=== PATIENT | male | born 1950 | race Caucasian/White ===

== ENCOUNTER → 2017-10-22 | Outpatient (CLI) | payer MEDICARE, OTHER ==
[~2017-10-22] MED LIST: ANAS1TAB3 PO; ASPI-621 PO; DABI150C PO; DILT120C9 PO; HYDR20TA22 PO; LEVO750T26 PO; METO25TA35 PO; POTA20TA91 PO; PRAS1TAB2 PO; ROSU5TAB PO
== END | disposition home or self-care (01) ==
LOC: WOUND 08:00
PROVIDERS: ATTEND Internal Medicine
DX: T81.31XD Disruption of external operation (surgical) wound, not elsewhere classified, subsequent encounter (principal); I25.10 Atherosclerotic heart disease of native coronary artery without angina pectoris; I10 Essential (primary) hypertension; I25.2 Old myocardial infarction; G47.33 Obstructive sleep apnea (adult) (pediatric); I48.2 Chronic atrial fibrillation; Y83.8 Other surgical procedures as the cause of abnormal reaction of the patient, or of later complication, without mention of misadventure at the time of the procedure
CPT/HCPCS: 11042; G0463; WOU0463

== ENCOUNTER → 2017-10-29 | Outpatient (CLI) | payer MEDICARE, OTHER | END | disposition home or self-care (01) | LOC: WOUND 08:00 | PROVIDERS: ATTEND Internal Medicine | DX: T81.31XD Disruption of external operation (surgical) wound, not elsewhere classified, subsequent encounter (principal); I25.10 Atherosclerotic heart disease of native coronary artery without angina pectoris; I10 Essential (primary) hypertension; G47.33 Obstructive sleep apnea (adult) (pediatric); I48.2 Chronic atrial fibrillation; I25.2 Old myocardial infarction; Y83.8 Other surgical procedures as the cause of abnormal reaction of the patient, or of later complication, without mention of misadventure at the time of the procedure | CPT/HCPCS: 97597 ==

== ENCOUNTER → 2017-11-05 | Outpatient (CLI) | payer MEDICARE, OTHER ==
[~2017-11-05] MED LIST changes: +DILT180C9 PO; +FEXO1TAB25 PO; +MULT-658 PO; +RIVA20TA PO; +SILO8CAP PO; +THYROID PO; +TIZA4TAB PO; +[UNRECOGNIZED DRUG - OTHER] IM
== END | disposition home or self-care (01) ==
LOC: WOUND 07:47
PROVIDERS: ATTEND Internal Medicine
DX: S81.801D Unspecified open wound, right lower leg, subsequent encounter (principal); E23.7 Disorder of pituitary gland, unspecified; G47.33 Obstructive sleep apnea (adult) (pediatric); I25.2 Old myocardial infarction; I48.91 Unspecified atrial fibrillation; I25.10 Atherosclerotic heart disease of native coronary artery without angina pectoris; I10 Essential (primary) hypertension; Z98.49 Cataract extraction status, unspecified eye; Z90.49 Acquired absence of other specified parts of digestive tract; X58.XXXD Exposure to other specified factors, subsequent encounter
CPT/HCPCS: 97597

== ENCOUNTER → 2017-11-12 | Outpatient (CLI) | payer MEDICARE, OTHER | END | disposition home or self-care (01) | LOC: WOUND 08:30 | PROVIDERS: ATTEND Internal Medicine | DX: T81.30XD Disruption of wound, unspecified, subsequent encounter (principal); S81.801D Unspecified open wound, right lower leg, subsequent encounter; X58.XXXD Exposure to other specified factors, subsequent encounter; I25.10 Atherosclerotic heart disease of native coronary artery without angina pectoris; I10 Essential (primary) hypertension; I48.91 Unspecified atrial fibrillation; G47.33 Obstructive sleep apnea (adult) (pediatric); E03.9 Hypothyroidism, unspecified; I25.2 Old myocardial infarction; I48.2 Chronic atrial fibrillation; Z90.49 Acquired absence of other specified parts of digestive tract | CPT/HCPCS: 97597 ==

== ENCOUNTER → 2017-11-26 | Outpatient (CLI) | payer MEDICARE, OTHER | END | disposition home or self-care (01) | LOC: WOUND 08:19 | PROVIDERS: ATTEND Internal Medicine | DX: T81.30XD Disruption of wound, unspecified, subsequent encounter (principal); I25.10 Atherosclerotic heart disease of native coronary artery without angina pectoris; I10 Essential (primary) hypertension; G47.33 Obstructive sleep apnea (adult) (pediatric); E78.5 Hyperlipidemia, unspecified; I11.9 Hypertensive heart disease without heart failure; E03.9 Hypothyroidism, unspecified; I25.2 Old myocardial infarction; E11.9 Type 2 diabetes mellitus without complications; I48.2 Chronic atrial fibrillation; Z90.49 Acquired absence of other specified parts of digestive tract; Z87.891 Personal history of nicotine dependence; Z79.01 Long term (current) use of anticoagulants; Y83.8 Other surgical procedures as the cause of abnormal reaction of the patient, or of later complication, without mention of misadventure at the time of the procedure | CPT/HCPCS: 97597 ==

== ENCOUNTER → 2017-12-03 | Outpatient (CLI) | payer MEDICARE, OTHER | END | disposition home or self-care (01) | LOC: WOUND 08:00 | PROVIDERS: ATTEND Family Medicine | DX: T81.31XD Disruption of external operation (surgical) wound, not elsewhere classified, subsequent encounter (principal); I25.10 Atherosclerotic heart disease of native coronary artery without angina pectoris; I48.91 Unspecified atrial fibrillation; G47.33 Obstructive sleep apnea (adult) (pediatric); I48.2 Chronic atrial fibrillation; E78.5 Hyperlipidemia, unspecified; I11.9 Hypertensive heart disease without heart failure; E03.9 Hypothyroidism, unspecified; E11.9 Type 2 diabetes mellitus without complications; I25.2 Old myocardial infarction; Z87.891 Personal history of nicotine dependence; Z90.49 Acquired absence of other specified parts of digestive tract; Z79.01 Long term (current) use of anticoagulants; Y83.8 Other surgical procedures as the cause of abnormal reaction of the patient, or of later complication, without mention of misadventure at the time of the procedure | CPT/HCPCS: 97597 ==

== ENCOUNTER → 2017-12-10 | Outpatient (CLI) | payer MEDICARE, OTHER ==
[~2017-12-10] MED LIST changes: +METO-99 PO; +METO50TA82 PO; +THYR32.54 PO; +THYR65TA2 PO
== END | disposition home or self-care (01) ==
LOC: WOUND 08:02
PROVIDERS: ATTEND Internal Medicine
DX: T81.31XD Disruption of external operation (surgical) wound, not elsewhere classified, subsequent encounter (principal); I25.10 Atherosclerotic heart disease of native coronary artery without angina pectoris; I10 Essential (primary) hypertension; G47.33 Obstructive sleep apnea (adult) (pediatric); E78.5 Hyperlipidemia, unspecified; E03.9 Hypothyroidism, unspecified; I25.2 Old myocardial infarction; G47.30 Sleep apnea, unspecified; I48.2 Chronic atrial fibrillation; I11.9 Hypertensive heart disease without heart failure; E11.9 Type 2 diabetes mellitus without complications; Z90.49 Acquired absence of other specified parts of digestive tract; Z87.891 Personal history of nicotine dependence; Z79.01 Long term (current) use of anticoagulants; Y83.8 Other surgical procedures as the cause of abnormal reaction of the patient, or of later complication, without mention of misadventure at the time of the procedure
CPT/HCPCS: 97597

== ENCOUNTER → 2017-12-17 | Outpatient (CLI) | payer MEDICARE, OTHER | END | disposition home or self-care (01) | LOC: WOUND 08:03 | PROVIDERS: ATTEND Internal Medicine | DX: T81.31XD Disruption of external operation (surgical) wound, not elsewhere classified, subsequent encounter (principal); I25.10 Atherosclerotic heart disease of native coronary artery without angina pectoris; I10 Essential (primary) hypertension; I48.91 Unspecified atrial fibrillation; G47.33 Obstructive sleep apnea (adult) (pediatric); E03.9 Hypothyroidism, unspecified; I48.2 Chronic atrial fibrillation; E78.5 Hyperlipidemia, unspecified; I11.9 Hypertensive heart disease without heart failure; I25.2 Old myocardial infarction; G47.30 Sleep apnea, unspecified; E11.9 Type 2 diabetes mellitus without complications; Z90.49 Acquired absence of other specified parts of digestive tract; Z87.891 Personal history of nicotine dependence; Z79.01 Long term (current) use of anticoagulants; Y83.8 Other surgical procedures as the cause of abnormal reaction of the patient, or of later complication, without mention of misadventure at the time of the procedure | CPT/HCPCS: 97597 ==

== ENCOUNTER 2017-12-19 08:03 | Observation (INO) | payer MEDICARE, OTHER ==
[~2017-12-19] VITALS: Ht 177.8 cm; Wt 117.7 kg
[~2017-12-19 08:03] MED LIST changes: -METO-99 PO; -METO50TA82 PO; -THYR32.54 PO; -THYR65TA2 PO
[2017-12-19] MEDS: SODIUM CHLORIDE 0.9% 1,000 ML IV SCH ×2 (08:24→16:24)
[2017-12-19 08:27] VITALS: BP 148/91
[2017-12-19] MEDS ORDERED: CEFAZOLIN PMX 1GM/50ML 50 ML IVPB ONE ×2 (08:30→09:00)
[2017-12-19] MEDS ORDERED: METO50TA82 PO (08:42)
[2017-12-19] MEDS ORDERED: THYR32.54 PO (08:42)
[2017-12-19] MEDS ORDERED: THYR65TA2 PO (08:42)
[2017-12-19 09:09] LABS: BASOPHILS # (AUTO) 0.04 x10^3/uL (0-0.1); BASOPHILS % (AUTO) 1 % (0-1); EOSINOPHILS # (AUTO) 0.17 x10^3/uL (0-0.4); EOSINOPHILS % (AUTO) 2 % (1-7); LYMPHOCYTES # (AUTO) 1.47 x10^3/uL (1-3.4); LYMPHOCYTES % (AUTO) 18 % (22-44); MD NO; MEAN CORPUSCULAR HGB CONC 33.2 g/dL (33.2-36.2); MEAN CORPUSCULAR VOLUME 96.2 fL (81-97); MEAN PLATELET VOLUME 9.5 fL (7.4-10.4); MONOCYTES # (AUTO) 0.91 x10^3/uL (0.2-0.8); MONOCYTES % (AUTO) 12 % (2-9); NEUTROPHILS # (AUTO) 5.37 x10^3/uL (1.8-6.8); NEUTROPHILS % (AUTO) 68 % (42-75); PLATELET COUNT 160 x10^3/uL (130-400); RED BLOOD COUNT 5.53 x10^6/uL (4.38-5.82); RED CELL DISTRIBUTION WIDTH 16.2 % (9.4-14.8)
[2017-12-19 09:21] LABS: ALANINE AMINOTRANSFERASE 30 U/L (12-78); ALBUMIN 3.4 g/dL (3.4-5.0); ANION GAP 7 mmol/L (5-15); CALCIUM 8.4 mg/dL (8.5-10.1); CHLORIDE 107 mmol/L (98-107); CREATININE 0.88 mg/dL (0.7-1.3)
[2017-12-19 09:24] LABS: ALKALINE PHOSPHATASE 62 U/L (45-117); TOTAL PROTEIN 6.9 g/dL (6.4-8.2)
[2017-12-19] MEDS ORDERED: CEFAZOLIN PMX 1GM/50ML 50 ML ONE (09:54)
[2017-12-19] MEDS ORDERED: FENTANYL PF 100 MCG/2ML ONE (09:54)
[2017-12-19] MEDS ORDERED: LIDOCAINE/PF 1%, 30ML ONE (09:54)
[2017-12-19] MEDS ORDERED: CEFAZOLIN 1,000 MG ONE (09:54)
[2017-12-19] MEDS ORDERED: MIDAZOLAM 1 MG/ML, 5ML ONE (09:54)
[2017-12-19] MEDS ORDERED: ONDANSETRON 2MG/ML, 2ML IV PRN (11:30)
[2017-12-19] MEDS ORDERED: TEMPLATE NON-FORMULARY MED. (Fexofenadine/Pseudoephedrine (Allegra-D 12 Hour Tablet**) 1 T PO PRN (11:30)
[2017-12-19] MEDS ORDERED: ZOLPIDEM 5MG TABLET PO PRN (11:30)
[2017-12-19] MEDS ORDERED: ACETAMINOPHEN 325 MG TABLET PO PRN (11:30)
[2017-12-19] MEDS ORDERED: TIZANIDINE 4MG TABLET PO PRN (11:30)
[2017-12-19] MEDS: HYDROcodone/APAP 5/325 TABLET PO PRN (14:31)
[2017-12-19 15:46] VITALS: BP 169/116
[2017-12-19 15:59] VITALS: BP 159/82
[2017-12-19] MEDS ORDERED: hydrALAzine 20 MG/ML, 1ML IV PRN (16:00)
[2017-12-19] MEDS: CARVEDILOL 3.125 MG TABLET PO SCH (16:11)
[2017-12-19] MEDS ORDERED: METOPROLOL 1 MG/ML, 5ML IVPush ONE (17:00)
[2017-12-19] MEDS ORDERED: METOPROLOL 1 MG/ML, 5ML ONE (17:06)
[2017-12-19 17:07] VITALS: BP 152/79
[2017-12-19 17:22] VITALS: BP 126/75
[2017-12-19] MEDS ORDERED: CEFAZOLIN PMX 1GM/50ML 50 ML IVPB SCH (18:00)
[2017-12-19] MEDS: CEFAZOLIN 1,000 MG in SODIUM CHLORIDE 0.9% 50 ML IVPB SCH (18:48)
[2017-12-19 19:45] VITALS: BP 144/83
[2017-12-19] MEDS: POTASSIUM CHLORIDE 10 MEQ TABLET.ER PO SCH (20:18)
[2017-12-19] MEDS: METOPROLOL TARTRATE 50 MG TABLET PO SCH (20:19)
[2017-12-19] MEDS: THYROID PORK 32.5 MG PO SCH (20:21)
[2017-12-19] MEDS ORDERED: SODIUM CHLORIDE FLUSH 10ML SYR IVF SCH (21:00)
[2017-12-20] MEDS: HYDROcodone/APAP 5/325 TABLET PO PRN (00:08)
[2017-12-20] MEDS: SODIUM CHLORIDE 0.9% 1,000 ML IV SCH (00:24)
[2017-12-20 01:30] VITALS: BP 144/93
[2017-12-20] MEDS: CEFAZOLIN 1,000 MG in SODIUM CHLORIDE 0.9% 50 ML IVPB SCH (03:02)
[2017-12-20 05:40] VITALS: BP 137/90
[2017-12-20] MEDS: CARVEDILOL 3.125 MG TABLET PO SCH (05:42)
[2017-12-20] MEDS: POTASSIUM CHLORIDE 10 MEQ TABLET.ER PO SCH (08:23)
[2017-12-20] MEDS: METOPROLOL TARTRATE 50 MG TABLET PO SCH (08:23)
[2017-12-20] MEDS: THYROID PORK 32.5 MG PO SCH (08:24)
[2017-12-20 08:27] VITALS: BP 154/102
[2017-12-20] MEDS ORDERED: SILODOSIN 8 MG PO SCH (09:00)
[2017-12-20] MEDS ORDERED: HYDROCORTISONE 20 MG TABLET PO SCH (09:00)
[2017-12-20] MEDS ORDERED: MULTIVITAMIN 1 TABLET PO SCH (09:00)
[2017-12-20] MEDS ORDERED: RIVAROXABAN 20 MG TABLET PO SCH (09:00)
[2017-12-20] MEDS ORDERED: METO-99 PO (09:08)
== END 2017-12-20 11:44 | disposition home or self-care (01) ==
LOC: CACL 08:03 → ORIP 11:03 → CACL 11:03 → 5SO 11:28
PROVIDERS: ADMIT Internal Medicine Cardiovascular Disease; ATTEND Internal Medicine Cardiovascular Disease
DX: I49.5 Sick sinus syndrome (principal); I48.91 Unspecified atrial fibrillation; E03.9 Hypothyroidism, unspecified; I95.9 Hypotension, unspecified
CPT/HCPCS: 33207; 36415; 71045; 80053; 85025; 96374; 96375; 96376; 99156; 99157; C1779; C1786; C1892; G0378; J0360; J0690; J2250; J3010; J3490

== ENCOUNTER → 2017-12-31 | Outpatient (CLI) | payer MEDICARE, OTHER ==
[~2017-12-31] MED LIST changes: +METO-99 PO; +METO50TA82 PO; +THYR32.54 PO; +THYR65TA2 PO
== END | disposition home or self-care (01) ==
LOC: WOUND 08:10
PROVIDERS: ATTEND Internal Medicine
DX: S81.801D Unspecified open wound, right lower leg, subsequent encounter (principal); I25.10 Atherosclerotic heart disease of native coronary artery without angina pectoris; I10 Essential (primary) hypertension; I48.91 Unspecified atrial fibrillation; G47.33 Obstructive sleep apnea (adult) (pediatric); E03.9 Hypothyroidism, unspecified; I48.2 Chronic atrial fibrillation; E78.5 Hyperlipidemia, unspecified; I11.9 Hypertensive heart disease without heart failure; I25.2 Old myocardial infarction; G47.30 Sleep apnea, unspecified; E11.9 Type 2 diabetes mellitus without complications; Z90.49 Acquired absence of other specified parts of digestive tract; Z87.891 Personal history of nicotine dependence; Z79.01 Long term (current) use of anticoagulants; X58.XXXD Exposure to other specified factors, subsequent encounter
CPT/HCPCS: G0463; WOU0463

== ENCOUNTER 2018-03-04 09:36 | Observation (INO) | payer MEDICARE, OTHER ==
[~2018-03-04] VITALS: Ht 177.8 cm; Wt 113.5 kg
[2018-03-04] MEDS ORDERED: SODIUM CHLORIDE 0.9% 1,000 ML IV ONE (09:56)
[2018-03-04 09:58] VITALS: BP 133/72
[2018-03-04] MEDS ORDERED: PLEASE ENTER HEIGHT AND WEIGHT MC SCH (10:00)
[2018-03-04] MEDS ORDERED: ALBU18HF INH (10:16)
[2018-03-04] MEDS ORDERED: FURO-92 PO (10:16)
[2018-03-04] MEDS ORDERED: ATOR40TA PO (10:16)
[2018-03-04] MEDS ORDERED: DILT120C58 PO (10:16)
[2018-03-04] MEDS ORDERED: LEVO88TA2 PO (10:16)
[2018-03-04] MEDS ORDERED: METO200T47 PO (10:16)
[2018-03-04 10:38] LABS: BASOPHILS # (AUTO) 0.03 x10^3/uL (0-0.1); BASOPHILS % (AUTO) 1 % (0-1); EOSINOPHILS # (AUTO) 0.16 x10^3/uL (0-0.4); EOSINOPHILS % (AUTO) 2 % (1-7); LYMPHOCYTES # (AUTO) 1.91 x10^3/uL (1-3.4); LYMPHOCYTES % (AUTO) 28 % (22-44); MD NO; MEAN CORPUSCULAR HEMOGLOBIN 31.6 pg (27.5-34.5); MEAN CORPUSCULAR HGB CONC 33.6 g/dL (33.2-36.2); MEAN CORPUSCULAR VOLUME 94.1 fL (81-97); MEAN PLATELET VOLUME 9.3 fL (7.4-10.4); MONOCYTES # (AUTO) 0.61 x10^3/uL (0.2-0.8); MONOCYTES % (AUTO) 9 % (2-9); NEUTROPHILS # (AUTO) 4.25 x10^3/uL (1.8-6.8); NEUTROPHILS % (AUTO) 61 % (42-75); PLATELET COUNT 209 x10^3/uL (130-400); RED BLOOD COUNT 5.81 x10^6/uL (4.38-5.82); RED CELL DISTRIBUTION WIDTH 15.3 % (9.4-14.8)
[2018-03-04 10:48] LABS: ANION GAP 7 mmol/L (5-15); CALCIUM 8.3 mg/dL (8.5-10.1); CHLORIDE 102 mmol/L (98-107); CREATININE 1.08 mg/dL (0.7-1.3)
[2018-03-04] MEDS ORDERED: FENTANYL PF 100 MCG/2ML ONE (11:23)
[2018-03-04] MEDS ORDERED: VERAPAMIL 2.5 MG/ML, 2ML ONE (11:23)
[2018-03-04] MEDS ORDERED: MIDAZOLAM 1 MG/ML, 2ML ONE ×2 (11:23→11:43)
[2018-03-04] MEDS ORDERED: LIDOCAINE-MPF 2%, 2ML ONE (11:23)
[2018-03-04] MEDS ORDERED: DIPHENHYDRAMINE 50 MG/ML, 1ML ONE (11:23)
[2018-03-04] MEDS ORDERED: NITROGLYCERIN 5 MG/ML, 10ML ONE (11:23)
[2018-03-04] MEDS ORDERED: HEPARIN 1,000 UNITS/ML, 10ML ONE (11:26)
[2018-03-04] MEDS ORDERED: TICAGRELOR 90 MG TABLET ONE (11:59)
[2018-03-04] MEDS ORDERED: BIVALIRUDIN 250 MG ONE ×3 (11:59→14:27)
[2018-03-04] MEDS ORDERED: ASPIRIN 325 MG TABLET EC ONE (12:15)
[2018-03-04] MEDS: BIVALIRUDIN 250 MG in DEXTROSE 5% 50 ML IV SCH ×5 (12:29→17:41)
[2018-03-04] MEDS ORDERED: SODIUM CHLORIDE 0.9% 1,000 ML IV SCH (12:29)
[2018-03-04] MEDS ORDERED: ACETAMINOPHEN 325 MG TABLET PO PRN ×2 (12:30→16:00)
[2018-03-04] MEDS ORDERED: ONDANSETRON 2MG/ML, 2ML IVPush PRN (16:00)
[2018-03-04] MEDS ORDERED: BISACODYL 5 MG EC TABLET PO PRN (16:00)
[2018-03-04] MEDS ORDERED: ZOLPIDEM 5MG TABLET PO PRN (16:00)
[2018-03-04] MEDS ORDERED: BISACODYL 10 MG SUPP PR PRN (16:00)
[2018-03-04 16:22] VITALS: BP 129/83
[2018-03-04 20:25] VITALS: BP 130/80
[2018-03-04] MEDS ORDERED: TICAGRELOR 90 MG TABLET PO SCH (21:00)
[2018-03-05 02:39] VITALS: BP 143/89
[2018-03-05 06:59] VITALS: BP 133/85
[2018-03-05] MEDS ORDERED: CLOP75TA PO (08:45)
[2018-03-05] MEDS ORDERED: CLOPIDOGREL 75 MG TABLET PO SCH (09:00)
[2018-03-05] MEDS ORDERED: ASPIRIN 81 MG TABLET EC PO SCH (09:00)
== END 2018-03-05 10:19 | disposition home or self-care (01) ==
LOC: CACL 09:36 → ORIP 15:57 → 5SO 16:27 → DCLOUNGE 03-05 10:09
PROVIDERS: ADMIT Internal Medicine Cardiovascular Disease; ATTEND Internal Medicine Cardiovascular Disease
DX: I25.110 Atherosclerotic heart disease of native coronary artery with unstable angina pectoris (principal); I11.0 Hypertensive heart disease with heart failure; I42.9 Cardiomyopathy, unspecified; I50.9 Heart failure, unspecified; E78.00 Pure hypercholesterolemia, unspecified; I48.2 Chronic atrial fibrillation; I50.23 Acute on chronic systolic (congestive) heart failure; I49.5 Sick sinus syndrome; Z95.0 Presence of cardiac pacemaker; Z79.01 Long term (current) use of anticoagulants
CPT/HCPCS: 36415; 80048; 85025; 93005; 93458; 99156; 99157; C1725; C1769; C1874; C1887; C1894; C9600; G0378; J0583; J1200; J1644; J2250; J3010; J3490; Q9967

== ENCOUNTER → 2018-05-01 | Outpatient (CLI) | payer MEDICARE, OTHER ==
[~2018-05-01] MED LIST changes: +ALBU18HF INH; -ANAS1TAB3 PO; +ANAS1TAB49 PO; +ATOR40TA PO; +CLOP75TA PO; +DILT120C58 PO; +FURO-92 PO; +LEVO88TA2 PO; +METO200T47 PO; -SILO8CAP PO; +SILO8CAP2 PO
== END | disposition home or self-care (01) ==
LOC: CFH 14:36
PROVIDERS: ATTEND Internal Medicine
DX: R91.1 Solitary pulmonary nodule (principal); I51.7 Cardiomegaly; Z87.01 Personal history of pneumonia (recurrent)
CPT/HCPCS: 71250

== ENCOUNTER → 2018-05-15 | Outpatient (CLI) | payer MEDICARE, OTHER | END | disposition home or self-care (01) | LOC: PETCFH 12:39 | PROVIDERS: ATTEND Nurse Practitioner | DX: R91.1 Solitary pulmonary nodule (principal) | CPT/HCPCS: 78815; A9552 ==

== ENCOUNTER → 2018-08-07 | Outpatient (CLI) | payer MEDICARE, OTHER ==
[~2018-08-07] MED LIST changes: -ASPI-621 PO; +ASPI81TA45 PO
== END | disposition home or self-care (01) ==
LOC: CVU 13:43
PROVIDERS: ATTEND Internal Medicine Cardiovascular Disease
DX: I08.2 Rheumatic disorders of both aortic and tricuspid valves (principal); I42.9 Cardiomyopathy, unspecified; E78.5 Hyperlipidemia, unspecified; I25.2 Old myocardial infarction; Z95.0 Presence of cardiac pacemaker; I70.0 Atherosclerosis of aorta
CPT/HCPCS: 93306